=== PATIENT | male | born 1980 | race Caucasian/White ===

== ENCOUNTER 2016-09-28 12:25 | Emergency (ER) | payer MEDICARE, OTHER ==
[~2016-09-28 12:25] MED LIST: ALBU1AER INH; PRED1TAB PO; TRIA0.5C TOP
[2016-09-28 12:27] VITALS: BP 130/64; PULSE 103; RESP 18; TEMP 102.2; O2SAT 95
[2016-09-28 13:21] LABS: AUTOMATED NEUTROPHIL # 16.5 TH/MM3 (1.8-7.7); BASOPHIL % 0.1 % (0.0-2.0); EOSINOPHIL # 0.1 TH/MM3 (0-0.4); EOSINOPHIL % 0.8 % (0.0-4.0); HEMATOCRIT 44.5 % (39.0-51.0); HEMO FLAGS DIFF FINAL; LYMPH % 3.2 % (9.0-44.0); LYMPHOCYTE # 0.6 TH/MM3 (1.0-4.8); MEAN CELL VOLUME 84.8 FL (80.0-100.0); MEAN CORPUSCULAR HEMOGLOBIN 28.1 PG (27.0-34.0); MEAN CORPUSCULAR HGB CONC 33.2 % (32.0-36.0); MONO % 4.5 % (0.0-8.0); NEUT % 91.4 % (16.0-70.0); PLATELET COUNT 324 TH/MM3 (150-450); RED BLOOD COUNT 5.25 MIL/MM3 (4.50-5.90); RED CELL DISTRIBUTION WIDTH 14.3 % (11.6-17.2)
[2016-09-28 13:27] LABS: ALT (GPT) 21 U/L (12-78); ANION GAP 8 MEQ/L (5-15); AST (GOT) 16 U/L (15-37); BICARBONATE 27.3 MEQ/L (21.0-32.0); BLOOD UREA NITROGEN 14 MG/DL (7-18); CHLORIDE 104 MEQ/L (98-107); GLOMERULAR FILTRATION RATE 79 ML/MIN (>89); SODIUM (NA) 139 MEQ/L (136-145)
[2016-09-28 13:29] LABS: ALKALINE PHOSPHATASE 66 U/L (45-117); TOTAL BILIRUBIN ADULT 0.8 MG/DL (0.2-1.0)
[2016-09-28] MEDS ORDERED: LITH300C2 PO (15:53)
[2016-09-28] MEDS ORDERED: SERO200T PO (15:53)
[2016-09-28] MEDS ORDERED: VIST50CA PO (15:53)
[2016-09-28] MEDS ORDERED: ACETAMINOPHEN 325 MG TAB PO ONE (16:00)
[2016-09-28] MEDS ORDERED: KETOROLAC TROMETHAMINE 30 MG/ML (IVP) VIAL IV PUSH ONE (16:00)
--- NOTE | 2016-09-28 16:16 | PD ---
HPI Chief Complaint: Cold / Flu Symptoms Time Seen by Provider: 16:11 Travel History International Travel<30 days: No Contact w/Intl Traveler<30days: No Traveled to known affect area: No History of Present Illness HPI 36-year-old male with a history of bipolar disorder to presents to the ED for evaluation of fever cough and runny nose. Per patient she's had this for the past almost week. Per patient is started on Sunday. Per patient his been taking [id number] remedies with minimal relief. Per patient he mainly has sore throat, headache, runny nose and cough that is productive. Per patient today he coughed a lot before coming which caused some vomiting. He denies any sick contacts. Patient states that he was recently put in senior care and had the flu showed at that time. He denies any abdominal pain. Per patient he does have a lot of body aches and chills. Fevers. No recent travel. No IV drugs. No history of HIV-related compromising immune system. He does have a history of marijuana abuse. No allergies to medication. PFSH Past Medical History Bipolar Disorder: Yes Anxiety: Yes Depression: Yes Past Surgical History Other Surgery: Yes (surgery on thumb as an infant) Social History Alcohol Use: Yes (quit ) Tobacco Use: Yes (quit) Substance Use: Yes (marijuana) Allergies-Medications (Allergen,Severity, Reaction): Coded Allergies: No Known Allergies (Unverified , 01/25/16) Reported Meds & Prescriptions Reported Meds & Active Scripts Active Tessalon Perles (Benzonatate) 100 Mg Cap 200 Mg PO TID PRN Medrol Dosepak (Methylprednisolone) 4 Mg Dspk 4 Mg PO DIRECTED Per Pharmacist direction Augmentin (Amoxicillin-Clavulanate) 875-125 mg Tab 875 Mg PO BID 10 Days not for use in CrCl <30 ml/min. Reported Vistaril (Hydroxyzine Pamoate) 50 Mg Cap 50 Mg PO QID PRN Seroquel (Quetiapine Fumarate) 200 Mg Tab 200 Mg PO HS [place] Carbonate 300 Mg Cap 300 Mg PO HS Review of Systems Except as stated in HPI: all other systems reviewed are Neg Physical Exam Narrative GENERAL: SKIN: Warm and dry. HEAD: Atraumatic. Normocephalic. EYES: Pupils equal and round 4 mm reactive to light and accommodation. No scleral icterus. No injection or drainage. ENT: No nasal bleeding or discharge. Mucous membranes pink and moist. Tongue is midline. No uvula deviation. Tonsils are large and swollen with exudates bilaterally. Erythematous. Patient has a producible pain on the frontal and maxillary sinuses. TMs are clear with no sign of infection or perforation. No mastoid tenderness. No cervical lymphadenopathy noted. NECK: Trachea midline. No JVD. No obvious meningeal signs noted. CARDIOVASCULAR: Regular rate and rhythm. No murmurs, S3, S4. RESPIRATORY: No accessory muscle use. Clear to auscultation. Breath sounds equal bilaterally. GASTROINTESTINAL: Abdomen soft, non-tender, nondistended. Hepatic and splenic margins not palpable. MUSCULOSKELETAL: Extremities without clubbing, cyanosis, or edema. No obvious deformities. Full range of motion of the upper and lower extremities bilaterally. 2+ pulses bilaterally. Ambulatory. NEUROLOGICAL: Awake and alert. No obvious cranial nerve deficits. Motor grossly within normal limits. Five out of 5 muscle strength in the arms and legs. Normal speech. PSYCHIATRIC: Appropriate mood and affect; insight and judgment normal. Data Data Last Documented VS Vital Signs Date Time Temp Pulse Resp B/P Pulse Ox O2 Delivery O2 Flow Rate FiO2 09/28/16 15:47 82 18 96 Room Air 09/28/16 12:27 102.2 130/64 Orders Complete Blood Count With Diff (09/28/16 12:32) Comprehensive Metabolic Panel (09/28/16 12:32) Lactic Acid Sepsis Protocol (09/28/16 12:32) Blood Culture (09/28/16 12:32) Influenzae A/B Antigen (09/28/16 15:48) Iv Access Insert/Monitor (09/28/16 15:49) Ketorolac Inj (Toradol Inj) (09/28/16 16:00) Acetaminophen (Tylenol) (09/28/16 16:00) Chest, Single Ap (09/28/16 ) Esmond (Li) (09/28/16 16:46) Labs Laboratory Tests Test 09/28/16 12:51 White Blood Count 18.0 TH/MM3 Red Blood Count 5.25 MIL/MM3 Hemoglobin 14.8 GM/DL Hematocrit 44.5 % Mean Corpuscular Volume 84.8 FL Mean Corpuscular Hemoglobin 28.1 PG Mean Corpuscular Hemoglobin 33.2 % Concent Red Cell Distribution Width 14.3 % Platelet Count 324 TH/MM3 Mean Platelet Volume 7.5 FL Neutrophils (%) (Auto) 91.4 % Lymphocytes (%) (Auto) 3.2 % Monocytes (%) (Auto) 4.5 % Eosinophils (%) (Auto) 0.8 % Basophils (%) (Auto) 0.1 % Neutrophils # (Auto) 16.5 TH/MM3 Lymphocytes # (Auto) 0.6 TH/MM3 Monocytes # (Auto) 0.8 TH/MM3 Eosinophils # (Auto) 0.1 TH/MM3 Basophils # (Auto) 0.0 TH/MM3 CBC Comment DIFF FINAL Differential Comment Sodium Level 139 MEQ/L Potassium Level 4.0 MEQ/L Chloride Level 104 MEQ/L Carbon Dioxide Level 27.3 MEQ/L Anion Gap 8 MEQ/L Blood Urea Nitrogen 14 MG/DL Creatinine 1.07 MG/DL Estimat Glomerular Filtration 79 ML/MIN Rate Random Glucose 96 MG/DL Lactic Acid Level 1.6 mmol/L Calcium Level 9.0 MG/DL Total Bilirubin 0.8 MG/DL Aspartate Amino Transf 16 U/L (AST/SGOT) Alanine Aminotransferase 21 U/L (ALT/SGPT) Alkaline Phosphatase 66 U/L Total Protein 7.7 GM/DL Albumin 4.2 GM/DL MDM Medical Decision Making Medical Screen Exam Complete: Yes Emergency Medical Condition: Yes Medical Record Reviewed: Yes Interpretation(s) CBC & BMP Diagram 09/28/16 12:51 Last Impressions Chest X-Ray 09/28/16 0000 Signed Impressions: Service Date/Time: September 16:16 - CONCLUSION: No acute disease. There is no evidence of pneumonia. Pool Proctor MD flu negative lactic WNL Differential Diagnosis Upper respiratory infection versus pharyngitis versus tonsillitis versus pneumonia versus influenza Narrative Course 36-year-old male that presents to the ED for elevation of cold-like symptoms. Patient was properly examined and was found to have signs and symptoms consistent appears to be likely viral illness. I do not see any obvious sign of meningeal signs. Patient hasn't taken anything today for his fever. Patient does have a high fever 102 with slight tachycardia. Patient was given IV fluids, labs were ordered. Patient was given Toradol and Tylenol to help with the fever and body aches. I recommend chest x-ray as well as influenza test. Patient's ago with plan. Labs and imaging showed no sign of acute disease or Tylenol levels a count. Case discussed my attending Dr. Wolfe who agrees with treatment plan. Patient will be treated for his sinusitis with Augmentin as well as Medrol Dosepak and Tessalon Perles. Take OTC meds as needed. Vitals were reassessed after given Tylenol and Toradol and patient feels improved. Told to follow closely with PCP. See ED worsening symptoms. Diagnosis Primary Impression: Sinusitis, acute Qualified Code: J01.10 - Acute non-recurrent frontal sinusitis Additional Impression: Pharyngitis, acute Qualified Code: J02.9 - Acute pharyngitis, unspecified etiology Patient Instructions: General Instructions Additional Instructions: Motrin and Tylenol for pain and fever. You can use [id number] antihistamine as well as well as Mucinex as needed for runny nose and congestion. Cough drops for cough as needed. Drink plenty of fluids. Follow-up with PCP. See ED for worsening symptoms. Med/Other Pt SpecificInfo: Prescription(s) given Scripts Benzonatate (Tessalon Perles)100 Mg Uon756 Mg PO TID PRN (COUGH) #20 CAP Ref 0 Prov:Airanna Wolfe MD 09/28/16 Methylprednisolone Dosepak (Medrol Dosepak)4 Mg Dspk4 Mg PO DIRECTED #1 DSPK Ref 0 Per Pharmacist direction Prov:Arianna Wolfe MD 09/28/16 Amoxicillin-Clavulanate (Augmentin)875-125 mg Obo554 Mg PO BID 10 Days not for use in CrCl <30 ml/min. Prov:Arianna Wolfe MD 09/28/16 Disposition: 01 DISCHARGE HOME Condition: Stable Jordan Crook Sep 28, 2016 16:15
[2016-09-28] MEDS ORDERED: AUGM875T PO (16:45)
[2016-09-28] MEDS ORDERED: MEDR4PAK PO (16:45)
[2016-09-28] MEDS ORDERED: BENZ100 PO (16:45)
--- NOTE | 2016-09-28 16:55 | RADRPT ---
EXAM DATE/TIME: 09/28/2016 16:16 [facility] COMPARISON: CHEST SINGLE AP, January 11, 2016, 16:30. INDICATIONS : Cough, fever MEDICAL HISTORY : None. SURGICAL HISTORY : None. ENCOUNTER: Initial ACUITY: 1 day PAIN SCORE: 0/10 LOCATION: Bilateral chest FINDINGS: A single view of the chest demonstrates the lungs to be symmetrically aerated without evidence of mas s, infiltrate or effusion. The cardiomediastinal contours are unremarkable. Osseous structures are intact. CONCLUSION: No acute disease. There is no evidence of pneumonia. Pool Proctor MD on September 28, 2016 at 16:53 Board Certified Radiologist. This report was verified electronically.
== END 2016-09-28 18:42 | disposition home or self-care (01) ==
LOC: NEPE 12:25
DX: J01.90 Acute sinusitis, unspecified (principal); J02.9 Acute pharyngitis, unspecified; F12.90 Cannabis use, unspecified, uncomplicated
CPT/HCPCS: 71010; 80053; 80178; 83605; 85025; 87040; 87804; 96374; 99283; J1885

== ENCOUNTER 2017-03-10 03:04 | Emergency (ER) | payer MEDICARE, MEDICAID ==
[~2017-03-10] VITALS: Ht 180.3 cm; Wt 118.0 kg
[~2017-03-10 03:04] MED LIST changes: -ALBU1AER INH; +AUGM875T PO; +BENZ100 PO; +LITH300C2 PO; +MEDR4PAK PO; -PRED1TAB PO; +SERO200T PO; -TRIA0.5C TOP; +VIST50CA PO
[2017-03-10 03:07] VITALS: BP 175/100; PULSE 81; TEMP 98.5; O2SAT 98
[2017-03-10] MEDS ORDERED: ORPHENADRINE INJ 60 MG/2 ML AMP IM ONE (04:45)
[2017-03-10] MEDS ORDERED: KETOROLAC TROMETHAMINE 60 MG/2 ML (IM) VIAL IM ONE (04:45)
--- NOTE | 2017-03-10 04:45 | PD ---
HPI Chief Complaint: Back/ Neck Pain or Injury Time Seen by Provider: 04:40 Travel History International Travel<30 days: No Contact w/Intl Traveler<30days: No Traveled to known affect area: No History of Present Illness HPI 36-year-old male presents to the emergency department by private transportation for evaluation of low back pain. Patient states around midnight was taking a shower and was bending over gently to dry off and as he stood up right felt a pop or heard a pop into his lower back. No lower extremity numbness tingling or weakness no collapse no fall. No bladder or bowel dysfunction. No saddle anesthesia. Patient has taken no medication for his pain. Patient states he decided to drive from [place] to [place] to be evaluated. Patient states he does not trust the local providers in his area reportedly. Patient has history of chronic pain syndrome due to multiple injuries from reported racing and playing football. Patient also has history of mental health concerns / anxiety depression. Patient rates back pain 10 over 10 in intensity. PFSH Past Medical History Narrative Medical Anxiety depression/bipolar disorder chronic back pain surgery on thumb is positive tobacco use alcohol use and marijuana use; nursing notes reviewed Bipolar Disorder: Yes Anxiety: Yes Depression: Yes Diminished Hearing: No Psychiatric: Yes (PTSD) Influenza Vaccination: Yes Past Surgical History Other Surgery: Yes (surgery on thumb as an ) Social History Alcohol Use: Yes (DAILY) Tobacco Use: Yes (1.5 PPD) Substance Use: Yes (MARIJUANA) Allergies-Medications (Allergen,Severity, Reaction): Coded Allergies: No Known Allergies (Unverified , 03/10/17) Reported Meds & Prescriptions Reported Meds & Active Scripts Active Reported Vistaril (Hydroxyzine Pamoate) 50 Mg Cap 50 Mg PO QID PRN Seroquel (Quetiapine Fumarate) 200 Mg Tab 200 Mg PO HS [place] Carbonate 300 Mg Cap 900 Mg PO HS Review of Systems Except as stated in HPI: all other systems reviewed are Neg General / Constitutional: No: Fever, Chills Eyes: No: Visual changes HENT: No: Headaches, Neck Pain Cardiovascular: No: Chest Pain or Discomfort Gastrointestinal: No: Nausea, Vomiting, Abdominal Pain Genitourinary: No: Flank Pain Musculoskeletal: Positive: Myalgias, Arthralgias, Limited ROM (low back), Pain Skin: No Rash Neurologic: No: Weakness, Dizziness, Syncope, Focal Abnormalities, Coordination Problem, Headache, Paresthesia, Incontinence, Seizures, Sensory Disturbance Psychiatric: No: Anxiety Endocrine: No: Heat Intolerance Hematologic/Lymphatic: No: Easy Bruising Physical Exam Narrative GENERAL: Well-developed well-nourished male in no acute distress no respiratory distress SKIN: Warm and dry. HEAD: Normocephalic. EYES: No scleral icterus. No injection or drainage. NECK: Supple, trachea midline. No JVD or lymphadenopathy. CARDIOVASCULAR: Regular rate and rhythm without murmurs, gallops, or rubs. RESPIRATORY: Breath sounds equal bilaterally. No accessory muscle use. GASTROINTESTINAL: Abdomen soft, non-tender, nondistended. MUSCULOSKELETAL: No cyanosis, or edema. BACK: Nontender without obvious deformity except tenderness to palpation along the lower lumbar spine. No ecchymosis no abrasion no induration no erythema. No SI joint tenderness. Negative straight leg raising bilaterally. Bilateral upper and lower extremity DTRs 2+ and symmetric. Sensory exam intact. No CVA tenderness. Data Data Last Documented VS Vital Signs Date Time Temp Pulse Resp B/P Pulse Ox O2 Delivery O2 Flow Rate FiO2 03/10/17 03:26 20 03/10/17 03:07 98.5 81 175/100 98 Orders Spine, Lumbar - Ltd (Ap & Lat) (03/10/17 ) Ketorolac Inj (Toradol Inj) (03/10/17 04:45) Orphenadrine Inj (Norflex Inj) (03/10/17 04:45) MDM Medical Decision Making Medical Screen Exam Complete: Yes Emergency Medical Condition: Yes Medical Record Reviewed: Yes Differential Diagnosis Lumbar sacral sprain strain fracture sciatica sacroiliitis HNP DDD; no history or exam findings to support cord injury Narrative Course Lumbar sacral x-ray obtained; patient administered Toradol 60 mg IM and Norflex 60 mg IM Diagnosis Primary Impression: Lumbar strain Nakia Bhatia MD Mar 10, 2017 04:45
--- NOTE | 2017-03-10 05:55 | RADRPT ---
EXAM DATE/TIME: 03/10/2017 05:04 [facility] COMPARISON: No previous studies available for comparison. INDICATIONS : Nontraumatic back pain. MEDICAL HISTORY : None. SURGICAL HISTORY : None. ENCOUNTER: Initial ACUITY: 1 day PAIN SCORE: 10/10 LOCATION: Bilateral chest FINDINGS: Two view examination was performed. There are five non-rib bearing vertebral bodies. The vertebral bodies are in normal alignment without evidence of subluxation or scoliosis. The disc spaces are griselda ntained. The pedicles are intact. Bony mineralization is normal. No fracture is identified. CONCLUSION: Unremarkable limited examination of the lumbar spine. Chet Hutton MD on March 10, 2017 at 5:53 Board Certified Radiologist. This report was verified electronically.
[2017-03-10 06:39] VITALS: BP 130/75
== END 2017-03-10 06:40 | disposition home or self-care (01) ==
LOC: NEPC 03:04
DX: S39.012A Strain of muscle, fascia and tendon of lower back, initial encounter (principal); F17.200 Nicotine dependence, unspecified, uncomplicated; Z87.39 Personal history of other diseases of the musculoskeletal system and connective tissue; Z86.59 Personal history of other mental and behavioral disorders; X58.XXXA Exposure to other specified factors, initial encounter; Y93.E1 Activity, personal bathing and showering
CPT/HCPCS: 72100; 96372; 99284; J1885; J2360